=== PATIENT | male | born 1995 | race Native Hawaiian/Other Pacific Islander ===

== ENCOUNTER 2018-05-08 11:43 | Emergency (ER) | payer OTHER ==
[2018-05-08 11:49] VITALS: BMI 24.8
[2018-05-08 11:55] VITALS: BP 125/72; PULSE 66; RESP 18; TEMP 98.2; O2SAT 99
[2018-05-08] MEDS ORDERED: Aluminum Hydroxide/Magnesium Hydroxide Susp (30 mL) PO STA (12:04)
[2018-05-08] MEDS ORDERED: Aluminum Hydroxide/Magnesium Hydroxide Susp (30 mL) ONE (12:15)
--- NOTE | 2018-05-08 12:28 | RAD ---
Date of service: 05/08/2018 Indication: foreign body sensation Soft tissue neck radiographs, two views Comparison: None available Findings: Cervical spine not visualized beyond C6 on lateral view. Straightening of the normal cervical lordosis may be related to muscle spasm or positioning. No acute displaced fracture of subluxation of the cervical spine. Soft tissues appear unremarkable. Prevertebral soft tissues appear unremarkable. Airway appears grossly unremarkable. Dental hardware present, otherwise no evidence of radiopaque foreign body. Impression: No acute findings identified.
--- NOTE | 2018-05-08 12:52 | C.PDOC ---
Time Seen by Provider: 05/08/18 11:56 Chief Complaint (Nursing): Foreign Body Past Medical History Vital Signs: Last Vital Signs Temp 98.2 F 05/08/18 11:49 Pulse 66 05/08/18 11:49 Resp 18 05/08/18 11:49 BP 125/72 05/08/18 11:49 Pulse Ox 99 05/08/18 11:49 - Medical History PMH: Asthma - Social History Hx Alcohol Use: Yes Hx Substance Use: No - Immunization History Hx Tetanus Toxoid Vaccination: No Hx Influenza Vaccination: Yes Hx Pneumococcal Vaccination: No ED Course And Treatment O2 Sat by Pulse Oximetry: 99 Disposition - Disposition Referrals: Juan Garcia MD [Staff Provider] - Disposition: HOME/ ROUTINE Disposition Time: 12:49 Condition: STABLE Additional Instructions: follow up with nurse executive tomorrow. call to make an appointment. your xray was read as normal return to ER if symptoms worsens or progress return if you vomit or if throat sensation worsens Instructions: Dysphagia Forms: General Discharge Instructions, [facility] ([place]), Work Excuse - Clinical Impression Clinical Impression: Foreign body
--- NOTE | 2018-05-08 12:55 | C.PDOC ---
History Of Present Illness 23 y/o male comes in complaining of something that is stuck in his throat after eating an [place] hoagie sandwich yesterday. He states hes been able to tolerate liquids but hasnt eaten anything since then. Patient denies vomiting, abdominal pain, or any medical problems. Time Seen by Provider: 05/08/18 11:56 Chief Complaint (Nursing): Foreign Body History Per: Patient History/Exam Limitations: no limitations Onset/Duration Of Symptoms: Days Current Symptoms Are (Timing): Still Present Past Medical History Reviewed: Historical Data, Nursing Documentation, Vital Signs Vital Signs: Last Vital Signs Temp 98.2 F 05/08/18 11:49 Pulse 66 05/08/18 11:49 Resp 18 05/08/18 11:49 BP 125/72 05/08/18 11:49 Pulse Ox 99 05/08/18 11:49 - Medical History PMH: Asthma Family History: States: No Known Family Hx - Social History Hx Alcohol Use: Yes Hx Substance Use: No - Immunization History Hx Tetanus Toxoid Vaccination: No Hx Influenza Vaccination: Yes Hx Pneumococcal Vaccination: No Review Of Systems Except As Marked, All Systems Reviewed And Found Negative. ENT: Positive for: Other (Foreign body sensation in throat) Physical Exam - Physical Exam Appears: Non-toxic, No Acute Distress Skin: Warm, Dry Head: Atraumatic, Normacephalic Eye(s): bilateral: Normal Inspection Oral Mucosa: Moist Throat: Normal, Other (No foreign body visualized) Neck: Supple Chest: Symmetrical Cardiovascular: Rhythm Regular, No Murmur Respiratory: Normal Breath Sounds, No Rales, No Rhonchi, No Wheezing Gastrointestinal/Abdominal: Soft, No Tenderness Extremity: Bilateral: Atraumatic, Normal Color And Temperature, Normal ROM Neurological/Psych: Oriented x3, Normal Speech ED Course And Treatment O2 Sat by Pulse Oximetry: 99 (RA) Pulse Ox Interpretation: Normal - Other Rad Soft Tissue Neck XR X-Ray: Read By Radiologist Interpretation: Findings: Cervical spine not visualized beyond C6 on lateral view. Straightening of the normal cervical lordosis may be related to muscle spasm or positioning. No acute displaced fracture of subluxation of the cervical spine. Soft tissues appear unremarkable. Prevertebral soft tissues appear unremarkable. Airway appears grossly unremarkable. Dental hardware present, otherwise no evidence of radiopaque foreign body. Impression: No acute findings identified. Medical Decision Making Medical Decision Making: Impression: Foreign body in throat Plan: --Maalox 30 ml PO --Pepcid 20 mg PO --Neck soft tissue XR patient able to consume crackers and soda. Will discharge home to follow up with gi. Disposition - Disposition Referrals: Juan Garcia MD [Staff Provider] - Disposition: HOME/ ROUTINE Disposition Time: 13:00 Condition: STABLE Additional Instructions: follow up with admin assistant tomorrow. call to make an appointment. your xray was read as normal return to ER if symptoms worsens or progress return if you vomit or if throat sensation worsens Instructions: Dysphagia Forms: General Discharge Instructions, [facility] (Y[place]), Work Excuse - Clinical Impression Clinical Impression: Foreign body - Scribe Statement The provider has reviewed the documentation as recorded by the Sharifaibrobin Mcallister Provider Attestation: All medical record entries made by the Sharifaibrobin were at my direction and personally dictated by me. I have reviewed the chart and agree that the record accurately reflects my personal performance of the history, physical exam, medical decision making, and the department course for this patient. I have also personally directed, reviewed, and agree with the discharge instructions and disposition.
== END 2018-05-08 13:00 | disposition home or self-care (01) ==
LOC: C.ER 11:43
DX: R09.89 Other specified symptoms and signs involving the circulatory and respiratory systems (principal)